=== PATIENT | female | born 1955 | race Caucasian/White ===

== ENCOUNTER → 2024-03-21 | Outpatient (CLI) | payer OTHER ==
[2024-03-25 02:17] LABS: HPV HIGH RISK BY TMA Not Detected; HPV SOURCE Cervical/Vag
== END ==
LOC: LAB SHORT 15:06 → LAB 15:06
PROVIDERS: Obstetrics & Gynecology
DX: Z01.419 Encounter for gynecological examination (general) (routine) without abnormal findings (principal)
CPT/HCPCS: 87624; G0123

== ENCOUNTER 2024-05-26 10:07 | Day surgery (SDC) | payer OTHER ==
[~2024-05-26] VITALS: Ht 154.9 cm; Wt 68.3 kg
[2024-05-26] MEDS ORDERED: AMITRIPTYLINE H25 MG PO (10:36)
[2024-05-26] MEDS ORDERED: HYDROCODONE-AC1 EA19 PO (10:37)
[2024-05-26] MEDS ORDERED: CELE100 PO (10:37)
[2024-05-26] MEDS ORDERED: EUTHYROX150 MC1 PO (10:38)
[2024-05-26] MEDS ORDERED: Methocarbamol750 MG PO (10:38)
[2024-05-26] MEDS ORDERED: ESTRADIOL42.5 GM (10:38)
[2024-05-26] MEDS ORDERED: Amphetamine Sal30 MG PO (10:39)
[2024-05-26] MEDS ORDERED: ESCI10 PO (10:40)
[2024-05-26] MEDS ORDERED: OMEP20ER PO (10:41)
[2024-05-26] MEDS ORDERED: CENTRUM WOMEN1 EAC2 PO (10:41)
[2024-05-26] MEDS ORDERED: Lactated Ringer's 1,000 ML IV ONE (10:54)
[2024-05-26] MEDS ORDERED: FentaNYL Citrate 50 MCG/ML 2 ML Injection ONE (10:55)
[2024-05-26] MEDS ORDERED: Midazolam HCl 1MG / ML 2ML Vial ONE (10:55)
[2024-05-26] MEDS ORDERED: propofoL 20 ML IV ONE (10:55)
[2024-05-26] MEDS ORDERED: Dexamethasone Sod Phos 10 MG/ML 1ML VIAL ONE (11:12)
[2024-05-26] MEDS ORDERED: Ondansetron HCl 2 MG / ML 2ML Vial ONE (11:12)
--- NOTE | 2024-05-26 11:28 | NUR ---
05/26/24 1128 Jazmin Marie 135CC NACL FLUID DEFICIT FROM HYSTEROSCOPY. SURGEON AWARE.
--- NOTE | 2024-05-26 11:45 | NUR ---
05/26/24 1145 Shavonne Siddiqi PT ASLEEP WITH LMA UPON ARRIVAL TO PACU. 6L NRB. DOTTY PAD DRY AND CLEAN. PER ALIGNER TYPEWRITER REPORT , UPPER AND LOWER DENTURES LEFT IN SINCE THEY ARE GLUED IN.
--- NOTE | 2024-05-26 11:59 | NUR ---
05/26/24 1159 Shavonne Siddiqi REPORT GIVEN TO VEE ROSA
[2024-05-26 12:15] VITALS: BP 069/91
== END 2024-05-26 12:39 | disposition home or self-care (01) ==
LOC: ORSCSDS 10:07
PROVIDERS: Obstetrics & Gynecology
PROC: 0UB98ZZ Excision of Uterus, Via Natural or Artificial Opening Endoscopic (ICD-10-PCS; principal; 2024-05-26 11:30)
DX: N95.0 Postmenopausal bleeding (principal); N85.9 Noninflammatory disorder of uterus, unspecified; K21.9 Gastro-esophageal reflux disease without esophagitis; F41.9 Anxiety disorder, unspecified; F32.A Depression, unspecified; E03.9 Hypothyroidism, unspecified; F17.210 Nicotine dependence, cigarettes, uncomplicated; Z01.810 Encounter for preprocedural cardiovascular examination; E87.6 Hypokalemia; Z79.899 Other long term (current) drug therapy
CPT/HCPCS: 36415; 84132; 88305; 93005; 93010; J1100; J2250; J2405; J2704; J3010